=== PATIENT | male | born 1950 | race Caucasian/White ===

== ENCOUNTER → 2017-03-31 | Outpatient (CLI) | payer MEDICARE ==
[~2017-03-31] MED LIST: AMIO200T42 PO; APIX5TAB PO; CIPR500T3 PO; GABA300C10 PO; HYDR2TAB13 PO; IPRA4AER INH; LEVO50TA5 PO; METH500T97 PO; METO-93 PO; METO50TA82 PO; TIOT18CA INH
== END | disposition home or self-care (01) ==
LOC: CFH 08:43
PROVIDERS: ATTEND Internal Medicine Critical Care Medicine
DX: Z12.2 Encounter for screening for malignant neoplasm of respiratory organs (principal); F17.210 Nicotine dependence, cigarettes, uncomplicated; I25.10 Atherosclerotic heart disease of native coronary artery without angina pectoris; R91.8 Other nonspecific abnormal finding of lung field; J44.9 Chronic obstructive pulmonary disease, unspecified
CPT/HCPCS: G0297

== ENCOUNTER 2017-10-28 14:51 | Inpatient (IN) | payer MEDICARE ==
[~2017-10-28] VITALS: Ht 193 cm; Wt 85.7 kg
[~2017-10-28 14:51] MED LIST changes: -HYDR2TAB13 PO; +HYDR2TAB29 PO
[2017-10-28] MEDS ORDERED: ASPI81TA50 PO (15:32)
[2017-10-28 15:56] LABS: HEMOGLOBIN 12.9 g/dL (13.7-18.0); WHITE BLOOD COUNT 15.8 x10^3/uL (3.4-10)
[2017-10-28 16:08] LABS: ASPARTATE AMINO TRANSFERASE 49 U/L (15-37); BLOOD UREA NITROGEN 10 mg/dL (7-18)
[2017-10-28] MEDS ORDERED: CEFTRIAXONE PMX 1GM/50ML 50 ML IV ONE (18:00)
[2017-10-28] MEDS ORDERED: CEFTRIAXONE PMX 1GM/50ML 50 ML ONE (18:02)
[2017-10-28 19:00] VITALS: BP 111/76
[2017-10-28 19:14] VITALS: BP 106/70
[2017-10-28] MEDS ORDERED: ACETAMINOPHEN 325 MG TABLET PO PRN (19:30)
[2017-10-28] MEDS ORDERED: DOCUSATE 100 MG CAPSULE PO PRN (19:30)
[2017-10-28] MEDS ORDERED: TEMAZEPAM 15 MG CAPSULE PO PRN (19:30)
[2017-10-28] MEDS ORDERED: ENALAPRILAT 1.25 MG/ML, 2ML IVPush PRN (19:30)
[2017-10-28 20:30] VITALS: BP 106/70
[2017-10-28] MEDS: ENOXAPARIN 40 MG/0.4 ML SQ SCH (20:40)
[2017-10-28] MEDS: GABAPENTIN 300 MG CAPSULE PO SCH (20:40)
[2017-10-28] MEDS ORDERED: VANCOMYCIN PER PHARMACY MC PRN (22:00)
[2017-10-28] MEDS ORDERED: PHARMACOKINETIC MONITORING MC PRN (22:30)
[2017-10-29] MEDS: VANCOMYCIN 1,700 MG in SODIUM CHLORIDE 0.9% 250 ML IV SCH ×2 (00:24→17:18)
[2017-10-29 01:49] VITALS: BP 111/74
[2017-10-29 05:05] LABS: HEMOGLOBIN 11.9 g/dL (13.7-18.0); WHITE BLOOD COUNT 7.9 x10^3/uL (3.4-10)
[2017-10-29 05:10] LABS: BLOOD UREA NITROGEN 11 mg/dL (7-18)
[2017-10-29] MEDS: GABAPENTIN 300 MG CAPSULE PO SCH ×4 (06:25→22:14)
[2017-10-29] MEDS: CEFTRIAXONE PMX 1GM/50ML 50 ML IV SCH ×2 (06:26→19:46)
[2017-10-29] MEDS: LEVOTHYROXINE 125 MCG TABLET PO SCH (06:26)
[2017-10-29] MEDS: OMEPRAZOLE 20 MG CAPSULE.DR PO SCH (07:31)
[2017-10-29] MEDS: METOPROLOL SUCCINATE 50 MG TAB.ER.24H PO SCH (07:31)
[2017-10-29] MEDS: ASPIRIN 81 MG TABLET EC PO SCH (07:31)
[2017-10-29] MEDS: AMIODARONE 200 MG TABLET PO SCH (07:31)
[2017-10-29 07:34] VITALS: BP 100/66
[2017-10-29] MEDS ORDERED: ALBUTEROL/IPRATROPIUM 2.5MG/0.5MG, 3 ML HHN SCH (08:30)
[2017-10-29 14:00] VITALS: BP 110/75
[2017-10-29 19:37] VITALS: BP 105/61
[2017-10-29] MEDS: ENOXAPARIN 40 MG/0.4 ML SQ SCH (19:46)
[2017-10-30 01:22] VITALS: BP 102/67
[2017-10-30] MEDS: LEVOTHYROXINE 125 MCG TABLET PO SCH (05:36)
[2017-10-30] MEDS: GABAPENTIN 300 MG CAPSULE PO SCH (05:36)
[2017-10-30] MEDS: CEFTRIAXONE PMX 1GM/50ML 50 ML IV SCH (05:36)
[2017-10-30 06:36] LABS: HEMATOCRIT 36.6 % (39.2-51.8); WHITE BLOOD COUNT 6.8 x10^3/uL (3.4-10)
[2017-10-30 06:48] LABS: BLOOD UREA NITROGEN 13 mg/dL (7-18)
[2017-10-30] MEDS ORDERED: ALBUTEROL/IPRATROPIUM 2.5MG/0.5MG, 3 ML HHN PRN (08:30)
[2017-10-30] MEDS: METOPROLOL SUCCINATE 50 MG TAB.ER.24H PO SCH (08:53)
[2017-10-30] MEDS: OMEPRAZOLE 20 MG CAPSULE.DR PO SCH (08:57)
[2017-10-30] MEDS: ASPIRIN 81 MG TABLET EC PO SCH (08:58)
[2017-10-30] MEDS: AMIODARONE 200 MG TABLET PO SCH (08:58)
[2017-10-30 09:08] VITALS: BP 120/73
[2017-10-30] MEDS: VANCOMYCIN 1,700 MG in SODIUM CHLORIDE 0.9% 250 ML IV SCH (12:15)
[2017-10-30] MEDS ORDERED: DICL500C PO (14:30)
[2017-10-30 14:38] VITALS: BP 119/77
== END 2017-10-30 17:34 | disposition home health service (06) | DRG 871 ==
LOC: ED 17:02 → EDIP 17:48 → UNDOADMIN 18:02 → EDIP 18:02 → 3NW 18:31
PROVIDERS: ADMIT Hospitalist; ATTEND Hospitalist
DX: A41.9 Sepsis, unspecified organism (principal); E43 Unspecified severe protein-calorie malnutrition; J96.10 Chronic respiratory failure, unspecified whether with hypoxia or hypercapnia; D68.69 Other thrombophilia; J44.9 Chronic obstructive pulmonary disease, unspecified; I48.91 Unspecified atrial fibrillation; L03.115 Cellulitis of right lower limb; L03.116 Cellulitis of left lower limb; D53.9 Nutritional anemia, unspecified; F10.21 Alcohol dependence, in remission; G62.9 Polyneuropathy, unspecified; T45.1X5A Adverse effect of antineoplastic and immunosuppressive drugs, initial encounter; E03.9 Hypothyroidism, unspecified; Z92.21 Personal history of antineoplastic chemotherapy; Y92.89 Other specified places as the place of occurrence of the external cause; Z87.891 Personal history of nicotine dependence; Z68.23 Body mass index [BMI] 23.0-23.9, adult
CPT/HCPCS: 36415; 71010; 80048; 80053; 80307; 81003; 82140; 82607; 82746; 83605; 83690; 85025; 85610; 87040; 93005; 93970; 94667; 99285; J0696; J1650; J3370; G0479; J7050

== ENCOUNTER → 2017-12-24 | Outpatient (CLI) | payer MEDICARE ==
[~2017-12-24] MED LIST changes: +ASPI81TA50 PO; +DICL500C PO
== END ==
LOC: CFH 08:36
PROVIDERS: ATTEND Family Medicine
DX: M79.605 Pain in left leg (principal); M79.89 Other specified soft tissue disorders

== ENCOUNTER → 2018-03-03 | Outpatient (CLI) | payer MEDICARE | END | disposition home or self-care (01) | LOC: CVU 06:56 | PROVIDERS: ATTEND Internal Medicine Cardiovascular Disease | DX: I87.2 Venous insufficiency (chronic) (peripheral) (principal); R60.0 Localized edema | CPT/HCPCS: 93922; 93970 ==

== ENCOUNTER 2018-06-02 11:47 | Day surgery (SDC) | payer MEDICARE ==
[~2018-06-02] VITALS: Ht 193 cm; Wt 86.0 kg
[~2018-06-02 11:47] MED LIST changes: +ALBU18HF INH; +AMIO100T4 PO; +CEFD300C37 PO; +DOXY100T10 PO; +FLUT1POW2 NAS; +GUAI100L11 PO; +IPRA3AMP NPPB; +MELO15TA24 PO; +METO25TA35 PO; +OMEP-110 PO; +PRED5TAB PO; +TRAZ100T15 PO; +TRIA1CAP3 PO; +UMEC1DIS INH
[2018-06-02] MEDS ORDERED: LIDOCAINE-MPF 2% ,5ML ONE (12:52)
== END 2018-06-02 14:08 ==
LOC: CACL 11:47
PROVIDERS: ATTEND Internal Medicine Cardiovascular Disease
DX: I83.12 Varicose veins of left lower extremity with inflammation (principal); I10 Essential (primary) hypertension; J44.9 Chronic obstructive pulmonary disease, unspecified; I48.91 Unspecified atrial fibrillation; Z98.890 Other specified postprocedural states; Z72.89 Other problems related to lifestyle; Z79.82 Long term (current) use of aspirin
CPT/HCPCS: 36482; C1894; J3490

== ENCOUNTER → 2018-06-04 | Outpatient (CLI) | payer MEDICARE ==
[~2018-06-04] MED LIST changes: -IPRA3AMP NPPB; +IPRA3AMP30 NPPB; +TRAZ-137 PO; -TRAZ100T15 PO
== END | disposition home or self-care (01) ==
LOC: EDSTATUS 09:00 → CVU 09:07
PROVIDERS: ATTEND Internal Medicine Cardiovascular Disease
DX: I87.2 Venous insufficiency (chronic) (peripheral) (principal); Z79.82 Long term (current) use of aspirin; I11.9 Hypertensive heart disease without heart failure; F10.20 Alcohol dependence, uncomplicated
CPT/HCPCS: 93971

== ENCOUNTER → 2018-07-07 | Outpatient (CLI) | payer MEDICARE ==
[~2018-07-07] MED LIST changes: +ASCO-90 PO; +FERR-46 PO; +LEVO125T5 PO
[2018-07-07 12:32] LABS: ALANINE AMINOTRANSFERASE 18 U/L (12-78); ALBUMIN 3.8 g/dL (3.4-5.0); ANION GAP 7 mmol/L (5-15); CALCIUM 9.4 mg/dL (8.5-10.1); CHLORIDE 106 mmol/L (98-107); CREATININE 0.85 mg/dL (0.7-1.3)
[2018-07-07 12:34] LABS: ALKALINE PHOSPHATASE 99 U/L (45-117); BILIRUBIN,TOTAL 0.8 mg/dL (0.2-1.0); TOTAL PROTEIN 7.2 g/dL (6.4-8.2)
== END | disposition home or self-care (01) ==
LOC: STAR 10:43
PROVIDERS: ATTEND Internal Medicine
DX: Z01.818 Encounter for other preprocedural examination (principal); I45.10 Unspecified right bundle-branch block; R13.10 Dysphagia, unspecified; F17.200 Nicotine dependence, unspecified, uncomplicated
CPT/HCPCS: 36415; 80053; 93005

== ENCOUNTER 2018-07-14 09:54 | Day surgery (SDC) | payer MEDICARE ==
[2018-07-07 11:31] VITALS: BP 113/75
[~2018-07-14] VITALS: Ht 193 cm; Wt 82.4 kg
[2018-07-14] MEDS ORDERED: LACTATED RINGERS 1,000 ML IV SCH (10:24)
[2018-07-14] MEDS ORDERED: LIDOCAINE-MPF 1%, 2ML INFIL ONE (10:30)
[2018-07-14 10:32] VITALS: BP 113/75
[2018-07-14] MEDS ORDERED: ALBUTEROL/IPRATROPIUM 2.5MG/0.5MG, 3 ML NPPB PRN (12:30)
[2018-07-14] MEDS ORDERED: FENTANYL PF 100 MCG/2ML IV PRN (12:30)
[2018-07-14] MEDS ORDERED: ONDANSETRON 2MG/ML, 2ML IV PRN (12:30)
[2018-07-14] MEDS ORDERED: hydrALAzine 20 MG/ML, 1ML IV PRN (12:30)
[2018-07-14] MEDS ORDERED: PROPOFOL 10 MG/ML, 20ML ONE (12:30)
[2018-07-14] MEDS ORDERED: LABETALOL 5MG/ML, 20ML IV PRN (12:30)
[2018-07-14] MEDS ORDERED: OXYcodone 5 MG/5 ML ORAL.SOL UDC PO PRN (12:30)
[2018-07-14] MEDS ORDERED: ACETAMINOPHEN 325 MG TABLET PO PRN (12:30)
[2018-07-14] MEDS ORDERED: HYDROmorphone 1 MG/ML, 1ML IV PRN (12:30)
[2018-07-14] MEDS ORDERED: MIDAZOLAM 1 MG/ML, 2ML IV PRN (12:30)
== END 2018-07-14 15:00 | disposition home or self-care (01) ==
LOC: OUT 09:54
PROVIDERS: ATTEND Internal Medicine
DX: R13.10 Dysphagia, unspecified (principal); I48.91 Unspecified atrial fibrillation; I10 Essential (primary) hypertension; J44.9 Chronic obstructive pulmonary disease, unspecified; Z98.890 Other specified postprocedural states; Z96.642 Presence of left artificial hip joint; Z79.82 Long term (current) use of aspirin; Z79.899 Other long term (current) drug therapy
CPT/HCPCS: 43239; 43248; 88305; J2704; J7120

== ENCOUNTER → 2018-07-26 | Outpatient (CLI) | payer MEDICARE | END | disposition home or self-care (01) | LOC: CFH 14:24 | PROVIDERS: ATTEND Nurse Practitioner Family | DX: R91.1 Solitary pulmonary nodule (principal); J44.9 Chronic obstructive pulmonary disease, unspecified; Z87.891 Personal history of nicotine dependence | CPT/HCPCS: 71250 ==

== ENCOUNTER → 2018-10-13 | Outpatient (CLI) | payer MEDICARE | END | disposition home or self-care (01) | LOC: CFH 10:33 | PROVIDERS: ATTEND Nurse Practitioner Family | DX: R91.8 Other nonspecific abnormal finding of lung field (principal); M48.54XA Collapsed vertebra, not elsewhere classified, thoracic region, initial encounter for fracture | CPT/HCPCS: 71250 ==

== ENCOUNTER → 2019-01-31 | Outpatient (CLI) | payer MEDICARE ==
[~2019-01-31] MED LIST changes: +REGADENOSON 0.4 MG/5 ML SYRINGE ONE
== END | disposition home or self-care (01) ==
LOC: CFH 12:51
PROVIDERS: ATTEND Internal Medicine Cardiovascular Disease
DX: I45.19 Other right bundle-branch block (principal); I48.0 Paroxysmal atrial fibrillation
CPT/HCPCS: 78452; 93017; A9502; J2785

== ENCOUNTER → 2019-04-18 | Outpatient (CLI) | payer MEDICARE ==
[~2019-04-18] MED LIST changes: -REGADENOSON 0.4 MG/5 ML SYRINGE ONE
== END | disposition home or self-care (01) ==
LOC: CFH 09:32
PROVIDERS: ATTEND Nurse Practitioner Family
DX: R91.1 Solitary pulmonary nodule (principal)
CPT/HCPCS: 71250

== ENCOUNTER → 2019-05-05 | Outpatient (CLI) | payer MEDICARE | END | disposition home or self-care (01) | LOC: PETCFH 09:46 | PROVIDERS: ATTEND Nurse Practitioner Family | DX: R91.1 Solitary pulmonary nodule (principal); J84.10 Pulmonary fibrosis, unspecified; R59.0 Localized enlarged lymph nodes | CPT/HCPCS: 78815; A9552 ==

== ENCOUNTER 2019-05-27 12:41 | Outpatient (CLI) | payer MEDICARE | END 2019-05-27 23:59 | disposition home or self-care (01) | LOC: RAD 12:41 | PROVIDERS: ATTEND Otolaryngology | DX: R13.10 Dysphagia, unspecified (principal); Z85.89 Personal history of malignant neoplasm of other organs and systems; Z98.890 Other specified postprocedural states | CPT/HCPCS: 74220 ==

== ENCOUNTER 2019-06-17 10:20 | Day surgery (SDC) | payer MEDICARE ==
[~2019-06-17] VITALS: Ht 190.5 cm; Wt 80.7 kg
[2019-06-17 11:00] VITALS: BP 120/83
== END 2019-06-17 15:05 | disposition home or self-care (01) ==
LOC: OUT 10:20
PROVIDERS: ATTEND Internal Medicine Critical Care Medicine
DX: R59.1 Generalized enlarged lymph nodes (principal); I48.91 Unspecified atrial fibrillation; J44.9 Chronic obstructive pulmonary disease, unspecified; J30.9 Allergic rhinitis, unspecified; I10 Essential (primary) hypertension; Z79.82 Long term (current) use of aspirin; Z79.899 Other long term (current) drug therapy; Z87.891 Personal history of nicotine dependence; Z92.21 Personal history of antineoplastic chemotherapy; Z92.3 Personal history of irradiation; Z99.81 Dependence on supplemental oxygen; Z80.1 Family history of malignant neoplasm of trachea, bronchus and lung; Z82.5 Family history of asthma and other chronic lower respiratory diseases
CPT/HCPCS: 31652; 36415; 80053; 88172; 88173; 88177; 88305; 93005; J0330; J0690; J1100; J2405; J2704; J2710; J3010; 31629

== ENCOUNTER 2019-10-02 09:09 | Emergency (ER) | payer MEDICARE ==
[~2019-10-02] VITALS: Ht 190.5 cm; Wt 81.8 kg
[~2019-10-02 09:09] MED LIST changes: -DOXY100T10 PO; +DOXY100T23 PO; +FLUT15.845 NAS
--- NOTE | 2019-10-02 09:20 | NUR ---
PT HERE WITH C/O URINARY RETENTION, ABDOMINAL PRESSURE, AND INABILITY TO VOID SINCE 09/30 AT 1200. PT STATES HAS OCCASSIONALLY HAD URINARY PROBLEMS IN THE PAST AND HAS A UROLOGIST. PT DRESSED IN GOWN, ABDOMEN FIRM AND DISTENDED BUT DENIES PAIN, STATES JUST PRESSURE. PT AAO X 4, NAD, 3L NC O2 FOR COPD (HOME O2), CALL LIGHT WITHIN REACH, PT PLACED ON MONITOR. MD AT BEDSIDE FOR ASSESSMENT.
--- NOTE | 2019-10-02 09:35 | NUR ---
17F LEON CATHETER PLACED USING STERILE TECHNIQUE WITH SECOND RN AT BEDSIDE. PT TOLERATED WELL. UA SENT, LEON DRAINING TO GRAVITY, CLEAR/YELLOW URINE.
[2019-10-02 09:49] LABS: BASOPHILS # (AUTO) 0.06 x10^3/uL (0-0.1); BASOPHILS % (AUTO) 1 % (0-1); EOSINOPHILS # (AUTO) 0.07 x10^3/uL (0-0.4); EOSINOPHILS % (AUTO) 1 % (1-7); LYMPHOCYTES # (AUTO) 0.43 x10^3/uL (1-3.4); LYMPHOCYTES % (AUTO) 4 % (22-44); MD NO; MEAN CORPUSCULAR HEMOGLOBIN 36.1 pg (27.5-34.5); MEAN CORPUSCULAR HGB CONC 33.3 g/dL (33.2-36.2); MEAN CORPUSCULAR VOLUME 108.3 fL (81-97); MEAN PLATELET VOLUME 8.6 fL (7.4-10.4); MONOCYTES # (AUTO) 1.23 x10^3/uL (0.2-0.8); MONOCYTES % (AUTO) 11 % (2-9); NEUTROPHILS # (AUTO) 9.54 x10^3/uL (1.8-6.8); NEUTROPHILS % (AUTO) 84 % (42-75); PLATELET COUNT 213 x10^3/uL (130-400); RED BLOOD COUNT 4.71 x10^6/uL (4.38-5.82); RED CELL DISTRIBUTION WIDTH 14.5 % (9.4-14.8)
[2019-10-02 09:57] LABS: ALBUMIN 3.7 g/dL (3.4-5.0); ANION GAP 6 mmol/L (5-15); CALCIUM 8.9 mg/dL (8.5-10.1); CHLORIDE 100 mmol/L (98-107); CREATININE 1.06 mg/dL (0.7-1.3)
[2019-10-02 09:58] VITALS: BP 119/81
[2019-10-02 10:03] LABS: MICROSCOPIC NOT IND
[2019-10-02 10:04] LABS: CULTURE INDICATED? NO
--- NOTE | 2019-10-02 10:07 | NUR ---
ALL RESULTS BACK AT THIS TIME, CHART UP FOR RECHECK.
--- NOTE | 2019-10-02 10:12 | NUR ---
1250 URINE EMPTIED FROM LEON.
--- NOTE | 2019-10-02 10:52 | NUR ---
LEG BAG TEACHING COMPLETED.
--- NOTE | 2019-10-02 10:54 | NUR ---
Patient/Caregiver given discharge instructions and they have confirmed that they understand the instructions. Patient ambulatory with steady gait.
== END 2019-10-02 11:02 | disposition home or self-care (01) ==
LOC: ED 09:53
DX: N40.1 Benign prostatic hyperplasia with lower urinary tract symptoms (principal); R33.8 Other retention of urine; I48.91 Unspecified atrial fibrillation; I48.92 Unspecified atrial flutter; J44.9 Chronic obstructive pulmonary disease, unspecified; F17.210 Nicotine dependence, cigarettes, uncomplicated; Z85.818 Personal history of malignant neoplasm of other sites of lip, oral cavity, and pharynx; Z96.642 Presence of left artificial hip joint
CPT/HCPCS: 36415; 51702; 80048; 81003; 82040; 85025; 99284

== ENCOUNTER 2019-11-23 09:37 | Outpatient (CLI) | payer MEDICARE ==
[2019-11-23] MEDS ORDERED: TAMS-11 PO (10:27)
[2019-11-23] MEDS ORDERED: AZEL137S4 NAS (10:27)
[2019-11-23] MEDS ORDERED: FINA5TAB4 PO (10:27)
[2019-11-23] MEDS ORDERED: MONT10TA9 PO (10:27)
[2019-11-23] MEDS ORDERED: ALBU18HF INH (10:31)
[2019-11-23 10:53] LABS: BASOPHILS # (AUTO) 0.06 x10^3/uL (0-0.1); BASOPHILS % (AUTO) 1 % (0-1); EOSINOPHILS # (AUTO) 0.21 x10^3/uL (0-0.4); EOSINOPHILS % (AUTO) 2 % (1-7); LYMPHOCYTES # (AUTO) 0.78 x10^3/uL (1-3.4); LYMPHOCYTES % (AUTO) 6 % (22-44); MD NO; MEAN CORPUSCULAR HGB CONC 33.7 g/dL (33.2-36.2); MEAN CORPUSCULAR VOLUME 109.7 fL (81-97); MEAN PLATELET VOLUME 8.8 fL (7.4-10.4); MONOCYTES # (AUTO) 1.23 x10^3/uL (0.2-0.8); MONOCYTES % (AUTO) 10 % (2-9); NEUTROPHILS # (AUTO) 10.33 x10^3/uL (1.8-6.8); NEUTROPHILS % (AUTO) 82 % (42-75); PLATELET COUNT 204 x10^3/uL (130-400); RED BLOOD COUNT 4.45 x10^6/uL (4.38-5.82); RED CELL DISTRIBUTION WIDTH 15.9 % (9.4-14.8)
[2019-11-23 11:05] LABS: ALBUMIN 3.7 g/dL (3.4-5.0); ANION GAP 8 mmol/L (5-15); CALCIUM 8.7 mg/dL (8.5-10.1); CHLORIDE 104 mmol/L (98-107)
[2019-11-23 11:10] LABS: ALANINE AMINOTRANSFERASE 46 U/L (12-78); ALKALINE PHOSPHATASE 63 U/L (45-117); BILIRUBIN,TOTAL 0.8 mg/dL (0.2-1.0); CREATININE 0.99 mg/dL (0.7-1.3); TOTAL PROTEIN 7.1 g/dL (6.4-8.2)
[2019-11-23 11:11] LABS: INTERNATIONAL NORMALIZED RATIO 0.94 (0.93-1.1)
== END 2019-11-23 23:59 | disposition home or self-care (01) ==
LOC: STAR 09:37
PROVIDERS: ATTEND Urology
DX: Z01.818 Encounter for other preprocedural examination (principal); I45.10 Unspecified right bundle-branch block; R33.9 Retention of urine, unspecified
CPT/HCPCS: 36415; 80053; 84134; 85025; 85610; 85730; 93005

== ENCOUNTER 2019-11-23 10:50 | Emergency (ER) | payer MEDICARE ==
[~2019-11-23] VITALS: Ht 190.5 cm; Wt 84.0 kg
[~2019-11-23 10:50] MED LIST changes: +AZEL137S4 NAS; +FINA5TAB4 PO; +MONT10TA9 PO; +TAMS-11 PO
--- NOTE | 2019-11-23 11:12 | NUR ---
pt presents to ED from [facility] for SVT found on pre-op EKG. EKG completed on arrival, NSR. Pt attached to all monitors. pt a&o, resps even and unlabored, denies any symptoms at this time. report given to MARGRET Godinez.
--- NOTE | 2019-11-23 11:23 | NUR ---
BREAK RN: PT UPRIGHT ON GURNEY AWAKE & COMFORTABLE, RESPONDS APPROP TO STAFF, NAD, COMFORT MEASURES PROVIDED, AT BS, CALL LIGHT WITHIN REACH.
[2019-11-23] MEDS ORDERED: SODIUM CHLORIDE FLUSH 10ML SYR IVF ONE (12:00)
[2019-11-23 12:24] LABS: ALANINE AMINOTRANSFERASE 41 U/L (12-78); ALBUMIN 3.4 g/dL (3.4-5.0); ANION GAP 7 mmol/L (5-15); CALCIUM 8.8 mg/dL (8.5-10.1); CHLORIDE 104 mmol/L (98-107)
[2019-11-23 12:25] LABS: BASOPHILS # (AUTO) 0.07 x10^3/uL (0-0.1); BASOPHILS % (AUTO) 1 % (0-1); EOSINOPHILS # (AUTO) 0.23 x10^3/uL (0-0.4); EOSINOPHILS % (AUTO) 2 % (1-7); LYMPHOCYTES # (AUTO) 0.84 x10^3/uL (1-3.4); LYMPHOCYTES % (AUTO) 7 % (22-44); MD NO; MEAN CORPUSCULAR HEMOGLOBIN 36.3 pg (27.5-34.5); MEAN CORPUSCULAR HGB CONC 33.2 g/dL (33.2-36.2); MEAN CORPUSCULAR VOLUME 109.4 fL (81-97); MEAN PLATELET VOLUME 9.6 fL (7.4-10.4); MONOCYTES # (AUTO) 1.26 x10^3/uL (0.2-0.8); MONOCYTES % (AUTO) 10 % (2-9); NEUTROPHILS # (AUTO) 10.03 x10^3/uL (1.8-6.8); NEUTROPHILS % (AUTO) 81 % (42-75); PLATELET COUNT 194 x10^3/uL (130-400); RED BLOOD COUNT 4.32 x10^6/uL (4.38-5.82); RED CELL DISTRIBUTION WIDTH 15.4 % (9.4-14.8)
[2019-11-23 12:34] LABS: ALKALINE PHOSPHATASE 58 U/L (45-117); BILIRUBIN,TOTAL 0.8 mg/dL (0.2-1.0); CREATININE 0.99 mg/dL (0.7-1.3); TOTAL PROTEIN 6.7 g/dL (6.4-8.2)
--- NOTE | 2019-11-23 12:53 | NUR ---
EDMD Sahm at bedside to update pt with results and POC. pt a&o, resps even and unlabored, denies pain. pt remains in NSR on patient monitor, no ectopy noted. EDMD notified pt's wbc is elevated at 12.7, pt states this is his baseline (unknown why). MD declines to order UA. MD plans to discharge, awaiting orders and paperwork at this time.
--- NOTE | 2019-11-23 13:27 | NUR ---
[id number] dr gomez spoke with dr pimentel
[2019-11-23 14:08] VITALS: BP 133/70
--- NOTE | 2019-11-23 14:09 | NUR ---
PT HAS NO COMPLAINT OF PAIN. PT HAS HAD NO RECURRENCE OF SVT DURING THIS VISIT. PT HAD ONE MINUTE EPISODE OF BIGEMINY AT 1311 WITH NO RECURRENCE. [facility] MD MARIE'Debbie RN TO DISCHARGE WITH F/U INSTRUCTIONS TO SEE ELECTRICIAN SUPERVISOR. PT STATES HE HAS CONTACTED HIS ELECTRICIAN SUPERVISOR AND HAS A F/U APPT TOMORROW. PT DENIES PAIN. PT A&O, RESPS EVEN AND UNLABORED, PT IS NSR ON EXECUTIVE SOUS CHEF WITH NO ECTOPY AT THIS TIME. PIV DC'D WITH TIP INTACT. PT GIVEN DC INSTRUCTIONS. PT AMB TO DC DESK WITH STEADY GAIT, USING OWN WALKER.
== END 2019-11-23 14:10 | disposition home or self-care (01) ==
LOC: ED 13:16
DX: I48.92 Unspecified atrial flutter (principal); J44.9 Chronic obstructive pulmonary disease, unspecified; I48.91 Unspecified atrial fibrillation
CPT/HCPCS: 36415; 71045; 80053; 84443; 85025; 93005; 99284

== ENCOUNTER 2019-11-30 05:46 | Day surgery (SDC) | payer MEDICARE ==
[~2019-11-30] VITALS: Ht 190.5 cm; Wt 82.0 kg
[2019-11-30] MEDS ORDERED: LACTATED RINGERS 1,000 ML IV SCH (06:33)
[2019-11-30] MEDS ORDERED: LIDOCAINE-MPF 1%, 2ML INFIL ONE (07:00)
[2019-11-30] MEDS ORDERED: FENTANYL PF 250 MCG/5ML ONE (07:23)
[2019-11-30] MEDS ORDERED: HYDROmorphone 1 MG/ML, 1ML INJ IVPush PRN (07:30)
[2019-11-30] MEDS ORDERED: LABETALOL 5MG/ML, 20ML IV PRN (07:30)
[2019-11-30] MEDS ORDERED: PROMETHAZINE 25 MG/ML, 1ML IV PRN (07:30)
[2019-11-30] MEDS ORDERED: FENTANYL PF 100 MCG/2ML IV PRN (07:30)
[2019-11-30] MEDS ORDERED: hydrALAzine 20 MG/ML, 1ML IV PRN (07:30)
[2019-11-30] MEDS ORDERED: ACETAMINOPHEN 500 MG TABLET PO ONE (07:30)
[2019-11-30] MEDS ORDERED: GABAPENTIN 300 MG CAPSULE PO ONE (07:30)
[2019-11-30] MEDS ORDERED: MEPERIDINE/PF 25MG/ML,1ML IVPush PRN (07:30)
[2019-11-30] MEDS ORDERED: HALOPERIDOL 5 MG/ML IV PRN (07:30)
[2019-11-30] MEDS ORDERED: ALBUTEROL/IPRATROPIUM 2.5MG/0.5MG, 3 ML NPPB PRN (07:30)
[2019-11-30] MEDS ORDERED: OXYcodone 5 MG/5 ML ORAL.SOL UDC PO PRN (07:30)
[2019-11-30] MEDS ORDERED: GENTAMICIN 80 MG/2 ML ONE ×2 (07:41)
[2019-11-30] MEDS ORDERED: ONDANSETRON 2MG/ML, 2ML ONE (08:12)
[2019-11-30] MEDS ORDERED: DEXAMETHASONE 4 MG/ML, 1ML ONE (08:12)
[2019-11-30] MEDS ORDERED: NEOSTIGMINE 1 MG/ML, 10ML ONE (08:12)
[2019-11-30] MEDS ORDERED: SUCCINYLCHOLINE 20 MG/ML, 10ML ONE (08:12)
[2019-11-30] MEDS ORDERED: CEFAZOLIN 1,000 MG ONE (08:12)
[2019-11-30] MEDS ORDERED: PROPOFOL 10 MG/ML, 20ML ONE (08:12)
[2019-11-30] MEDS ORDERED: GLYCOPYRROLATE 0.2MG/1ML, 5ML ONE (08:12)
[2019-11-30] MEDS ORDERED: ROCURONIUM 10MG/ML,5ML ONE (08:12)
[2019-11-30] MEDS ORDERED: ONDANSETRON 2MG/ML, 2ML IV PRN (11:30)
[2019-11-30] MEDS ORDERED: ACETAMINOPHEN 325 MG TABLET PO PRN (11:30)
[2019-11-30] MEDS ORDERED: GENTAMICIN 80 MG in SODIUM CHLORIDE 0.9% 48 ML IV SCH (11:30)
[2019-11-30] MEDS ORDERED: OPIUM/BELLADONNA SUPP.RECT 16.2-30 MG PR PRN (11:30)
[2019-11-30] MEDS: SODIUM CHLORIDE 0.9% 1,000 ML IV SCH (11:42)
[2019-11-30 14:00] VITALS: BP 103/70
[2019-11-30] MEDS: GENTAMICIN 80 MG in SODIUM CHLORIDE 0.9% 48 ML IV SCH (15:41)
[2019-11-30] MEDS: CEFAZOLIN PMX 1GM/50ML 50 ML IV SCH ×2 (16:20→23:58)
[2019-11-30] MEDS: HYDROcodone/APAP 5/325 TABLET PO PRN ×2 (16:25→21:03)
[2019-11-30 20:18] VITALS: BP 103/79
[2019-12-01 00:01] VITALS: BP 101/68
[2019-12-01] MEDS: GENTAMICIN 80 MG in SODIUM CHLORIDE 0.9% 48 ML IV SCH (00:30)
[2019-12-01 00:32] VITALS: BP 102/63
[2019-12-01 04:09] VITALS: BP 108/68
[2019-12-01 04:58] LABS: ANION GAP 4 mmol/L (5-15); CALCIUM 8.2 mg/dL (8.5-10.1); CHLORIDE 107 mmol/L (98-107); CREATININE 0.88 mg/dL (0.7-1.3)
[2019-12-01 07:31] VITALS: BP 114/73
[2019-12-01] MEDS: SODIUM CHLORIDE 0.9% 1,000 ML IV SCH (07:45)
[2019-12-01] MEDS: HYDROcodone/APAP 5/325 TABLET PO PRN (10:16)
[2019-12-01 14:58] VITALS: BP 100/68
== END 2019-12-01 15:35 | disposition home or self-care (01) ==
LOC: OUT 05:46 → 3WST 09:30 → 4NE 12-01 00:17 → OUT 12-01 15:35
PROVIDERS: ATTEND Urology
DX: N40.1 Benign prostatic hyperplasia with lower urinary tract symptoms (principal); C61 Malignant neoplasm of prostate; R33.8 Other retention of urine; I48.91 Unspecified atrial fibrillation; J44.9 Chronic obstructive pulmonary disease, unspecified; E03.9 Hypothyroidism, unspecified; I10 Essential (primary) hypertension
CPT/HCPCS: 36415; 52601; 80048; 85014; 85018; 88305; 88342; J0330; J0690; J1100; J1580; J2405; J2704; J2710; J3010; J7030; J7120; G0378

== ENCOUNTER → 2020-03-23 | Outpatient (CLI) | payer MEDICARE ==
[~2020-03-23] MED LIST changes: +MONT10TA11 PO; -MONT10TA9 PO; -TRAZ-137 PO; +TRAZ-175 PO
== END | disposition home or self-care (01) ==
LOC: STAR 15:31
PROVIDERS: ATTEND Internal Medicine
DX: Z01.818 Encounter for other preprocedural examination (principal); I44.4 Left anterior fascicular block; I45.10 Unspecified right bundle-branch block; R13.10 Dysphagia, unspecified
CPT/HCPCS: 93005

== ENCOUNTER 2020-03-28 06:34 | Day surgery (SDC) | payer MEDICARE ==
[~2020-03-28] VITALS: Ht 190.5 cm; Wt 77.0 kg
[2020-03-28 07:06] VITALS: BP 113/75
[2020-03-28] MEDS ORDERED: LACTATED RINGERS 1,000 ML IV SCH (07:07)
[2020-03-28] MEDS ORDERED: CHLORHEXIDINE 15 ML UDC ONE (07:09)
[2020-03-28] MEDS ORDERED: IPRA15SP NAS (07:24)
[2020-03-28] MEDS ORDERED: CHLORHEXIDINE 15 ML UDC MM ONE (07:30)
[2020-03-28] MEDS ORDERED: FENTANYL PF 100 MCG/2ML IV PRN (07:30)
[2020-03-28] MEDS ORDERED: ONDANSETRON 2MG/ML, 2ML IVPush PRN (07:30)
[2020-03-28] MEDS ORDERED: LIDOCAINE-MPF 2% ,5ML ONE (08:14)
[2020-03-28] MEDS ORDERED: SUCCINYLCHOLINE 20 MG/ML, 10ML ONE (08:14)
[2020-03-28] MEDS ORDERED: MIDAZOLAM 1 MG/ML, 2ML ONE (08:14)
[2020-03-28] MEDS ORDERED: PROPOFOL 10 MG/ML, 20ML ONE (08:14)
[2020-03-28] MEDS ORDERED: ALBUTEROL/IPRATROPIUM 2.5MG/0.5MG, 3 ML ONE (09:45)
[2020-03-28] MEDS ORDERED: ALBUTEROL/IPRATROPIUM 2.5MG/0.5MG, 3 ML NPPB PRN (10:00)
== END 2020-03-28 11:30 | disposition home or self-care (01) ==
LOC: OUT 06:34
PROVIDERS: ATTEND Internal Medicine
DX: R13.10 Dysphagia, unspecified (principal); K22.2 Esophageal obstruction; J44.9 Chronic obstructive pulmonary disease, unspecified; E11.9 Type 2 diabetes mellitus without complications; I10 Essential (primary) hypertension; Z79.82 Long term (current) use of aspirin; Z79.1 Long term (current) use of non-steroidal anti-inflammatories (NSAID); Z79.890 Hormone replacement therapy; Z79.899 Other long term (current) drug therapy; Z85.89 Personal history of malignant neoplasm of other organs and systems; Z92.21 Personal history of antineoplastic chemotherapy; Z92.3 Personal history of irradiation; Z96.642 Presence of left artificial hip joint; Z99.81 Dependence on supplemental oxygen; Z98.890 Other specified postprocedural states
CPT/HCPCS: 43239; 43248; 88305; 94640; J0330; J2250; J2704; J7120; U0001

== ENCOUNTER → 2020-04-27 | Outpatient (CLI) | payer MEDICARE ==
[~2020-04-27] MED LIST changes: +IPRA15SP NAS
== END | disposition home or self-care (01) ==
LOC: CVU 08:55
PROVIDERS: ATTEND Internal Medicine Cardiovascular Disease
DX: I70.202 Unspecified atherosclerosis of native arteries of extremities, left leg (principal); I48.91 Unspecified atrial fibrillation; I87.2 Venous insufficiency (chronic) (peripheral)
CPT/HCPCS: 93922; 93926

== ENCOUNTER → 2020-05-04 | Outpatient (CLI) | payer MEDICARE | END | disposition home or self-care (01) | LOC: CFH 12:39 | PROVIDERS: ATTEND Nurse Practitioner Family | DX: J98.19 Other pulmonary collapse (principal); J98.09 Other diseases of bronchus, not elsewhere classified; I25.10 Atherosclerotic heart disease of native coronary artery without angina pectoris; M48.54XA Collapsed vertebra, not elsewhere classified, thoracic region, initial encounter for fracture; R91.1 Solitary pulmonary nodule | CPT/HCPCS: 71250 ==

== ENCOUNTER 2020-05-10 09:07 | Day surgery (SDC) | payer MEDICARE ==
[2020-05-09 09:33] LABS: BASOPHILS # (AUTO) 0.03 x10^3/uL (0-0.1); BASOPHILS % (AUTO) 0 % (0-1); EOSINOPHILS # (AUTO) 0.13 x10^3/uL (0-0.4); EOSINOPHILS % (AUTO) 1 % (1-7); LYMPHOCYTES # (AUTO) 0.37 x10^3/uL (1-3.4); LYMPHOCYTES % (AUTO) 4 % (22-44); MD NO; MEAN CORPUSCULAR HEMOGLOBIN 36.1 pg (27.5-34.5); MEAN CORPUSCULAR HGB CONC 33.6 g/dL (33.2-36.2); MEAN CORPUSCULAR VOLUME 107.3 fL (81-97); MEAN PLATELET VOLUME 8.3 fL (7.4-10.4); MONOCYTES % (AUTO) 13 % (2-9); NEUTROPHILS # (AUTO) 8.52 x10^3/uL (1.8-6.8); NEUTROPHILS % (AUTO) 82 % (42-75); PLATELET COUNT 312 x10^3/uL (130-400); RED BLOOD COUNT 4.36 x10^6/uL (4.38-5.82); RED CELL DISTRIBUTION WIDTH 14.1 % (9.4-14.8)
[2020-05-09 09:44] LABS: INTERNATIONAL NORMALIZED RATIO 0.94 (0.93-1.1)
[~2020-05-10] VITALS: Ht 190.5 cm; Wt 74.6 kg
[~2020-05-10 09:07] MED LIST changes: +LIDOCAINE 2%, 20ML ONE; +LIDOCAINE 4% TOPICAL SOLUTION 50 ML ONE; +LIDOCAINE GEL 2%, 5ML ONE
[2020-05-10 09:30] VITALS: BP 120/80
[2020-05-10] MEDS ORDERED: SODIUM CHLORIDE 0.9% 1,000 ML IV SCH (09:30)
[2020-05-10] MEDS ORDERED: CHLORHEXIDINE 15 ML UDC MM ONE (09:30)
[2020-05-10] MEDS ORDERED: MIDAZOLAM 1 MG/ML, 5ML ONE (10:41)
[2020-05-10] MEDS ORDERED: FENTANYL PF 100 MCG/2ML ONE (10:41)
== END 2020-05-10 12:35 | disposition home or self-care (01) ==
LOC: OUT 09:07
PROVIDERS: ATTEND Internal Medicine
DX: R91.8 Other nonspecific abnormal finding of lung field (principal); Z11.59 Encounter for screening for other viral diseases; J44.9 Chronic obstructive pulmonary disease, unspecified; J96.10 Chronic respiratory failure, unspecified whether with hypoxia or hypercapnia; J30.9 Allergic rhinitis, unspecified; R59.1 Generalized enlarged lymph nodes; Z79.01 Long term (current) use of anticoagulants; Z79.82 Long term (current) use of aspirin; Z79.890 Hormone replacement therapy; Z79.1 Long term (current) use of non-steroidal anti-inflammatories (NSAID); Z79.899 Other long term (current) drug therapy; Z87.891 Personal history of nicotine dependence; Z99.81 Dependence on supplemental oxygen; Z80.1 Family history of malignant neoplasm of trachea, bronchus and lung; Z82.5 Family history of asthma and other chronic lower respiratory diseases
CPT/HCPCS: 31622; 36415; 85025; 85610; 85730; 87070; 87205; 87635; 99152; 99153; J2250; J3010; J7030

== ENCOUNTER 2020-06-11 13:56 | Day surgery (SDC) | payer MEDICARE ==
[~2020-06-11] VITALS: Ht 190.5 cm; Wt 74.3 kg
[~2020-06-11 13:56] MED LIST changes: -LIDOCAINE 2%, 20ML ONE; -LIDOCAINE 4% TOPICAL SOLUTION 50 ML ONE; -LIDOCAINE GEL 2%, 5ML ONE
[2020-06-11 14:24] VITALS: BP 108/55
[2020-06-11] MEDS ORDERED: CLIN300C8 PO (14:29)
[2020-06-11] MEDS ORDERED: METO50TA82 PO (14:29)
[2020-06-11] MEDS ORDERED: SODIUM CHLORIDE 0.9% 1,000 ML IV SCH (14:31)
[2020-06-11] MEDS ORDERED: FLUMAZENIL 0.1 MG/1 ML, 5ML ONE (15:17)
[2020-06-11] MEDS ORDERED: PROTAMINE SULFATE 10 MG/ML, 25ML ONE (15:17)
[2020-06-11] MEDS ORDERED: HEPARIN 1,000 UNITS/ML, 10ML ONE (15:17)
[2020-06-11] MEDS ORDERED: MIDAZOLAM 1 MG/ML, 5ML ONE (15:17)
[2020-06-11] MEDS ORDERED: FENTANYL PF 100 MCG/2ML ONE (15:17)
[2020-06-11] MEDS ORDERED: NALOXONE 1 MG/ML, 2ML ONE (15:17)
[2020-06-11 15:21] LABS: ALANINE AMINOTRANSFERASE 12 U/L (12-78); CALCIUM 8.8 mg/dL (8.5-10.1); CHLORIDE 97 mmol/L (98-107); CREATININE 0.79 mg/dL (0.7-1.3)
[2020-06-11] MEDS ORDERED: LIDOCAINE 1%, 10ML ONE (15:26)
[2020-06-11 16:07] LABS: ALKALINE PHOSPHATASE 97 U/L (45-117); BILIRUBIN,TOTAL 0.5 mg/dL (0.2-1.0); TOTAL PROTEIN 7.1 g/dL (6.4-8.2)
[2020-06-11 16:23] LABS: ANION GAP 9 mmol/L (5-15)
== END 2020-06-11 17:50 | disposition home or self-care (01) ==
LOC: OUT 13:56
PROVIDERS: ATTEND Surgery
DX: L97.428 Non-pressure chronic ulcer of left heel and midfoot with other specified severity (principal); Z11.59 Encounter for screening for other viral diseases; I70.213 Atherosclerosis of native arteries of extremities with intermittent claudication, bilateral legs; I48.91 Unspecified atrial fibrillation; I10 Essential (primary) hypertension; J44.9 Chronic obstructive pulmonary disease, unspecified; Z85.89 Personal history of malignant neoplasm of other organs and systems; Z98.890 Other specified postprocedural states; Z96.642 Presence of left artificial hip joint; Z82.49 Family history of ischemic heart disease and other diseases of the circulatory system; Z72.89 Other problems related to lifestyle; F17.210 Nicotine dependence, cigarettes, uncomplicated; F12.90 Cannabis use, unspecified, uncomplicated; Z83.3 Family history of diabetes mellitus
CPT/HCPCS: 36200; 36415; 75630; 80053; 87635; 99156; 99157; C1751; C1760; C1769; C1894; J2250; J3010; J1644; J2720; J2310

== ENCOUNTER 2020-07-17 20:21 | Inpatient (IN) | payer MEDICARE ==
[~2020-07-17] VITALS: Ht 190.5 cm; Wt 81.3 kg
[~2020-07-17 20:21] MED LIST changes: +CLIN300C8 PO
--- NOTE | 2020-07-17 20:58 | NUR ---
C/O FACIAL AND THROAT SWELLING 3-4 WEEKS, WORSE TODAY. PLACED ON CARDIAC AND VITALS MONITORS, CALL LIGHT WITHIN REACH.
[2020-07-17] MEDS ORDERED: DEXAMETHASONE 4 MG/ML, 1ML ONE (22:22)
[2020-07-17 22:28] LABS: BASOPHILS # (AUTO) 0.01 x10^3/uL (0-0.1); BASOPHILS % (AUTO) 0 % (0-1); EOSINOPHILS # (AUTO) 0.14 x10^3/uL (0-0.4); EOSINOPHILS % (AUTO) 2 % (1-7); LYMPHOCYTES # (AUTO) 0.43 x10^3/uL (1-3.4); LYMPHOCYTES % (AUTO) 6 % (22-44); MD NO; MEAN CORPUSCULAR HEMOGLOBIN 34.1 pg (27.5-34.5); MEAN CORPUSCULAR HGB CONC 32.2 g/dL (33.2-36.2); MEAN CORPUSCULAR VOLUME 105.9 fL (81-97); MEAN PLATELET VOLUME 8.6 fL (7.4-10.4); MONOCYTES # (AUTO) 0.96 x10^3/uL (0.2-0.8); MONOCYTES % (AUTO) 13 % (2-9); NEUTROPHILS # (AUTO) 5.95 x10^3/uL (1.8-6.8); NEUTROPHILS % (AUTO) 80 % (42-75); PLATELET COUNT 194 x10^3/uL (130-400); RED BLOOD COUNT 4.03 x10^6/uL (4.38-5.82); RED CELL DISTRIBUTION WIDTH 17.8 % (9.4-14.8)
[2020-07-17] MEDS ORDERED: DEXAMETHASONE 4 MG/ML, 1ML IVPush ONE ×2 (22:30)
[2020-07-17 22:34] LABS: ALBUMIN 3.2 g/dL (3.4-5.0); ANION GAP 8 mmol/L (5-15); CHLORIDE 94 mmol/L (98-107); CREATININE 0.75 mg/dL (0.7-1.3)
--- NOTE | 2020-07-17 22:58 | NUR ---
Pt medicated per emar and given steroids.
--- NOTE | 2020-07-17 23:06 | NUR ---
REPORT GIVEN TO PATRICIA OSWALD.
[2020-07-17] MEDS ORDERED: OMNIPAQUE 350 MG/ML, 100ML BOTTLE ONE (23:16)
[2020-07-17] MEDS ORDERED: MORPHINE SULFATE 4 MG/ML, 1ML ONE (23:28)
[2020-07-17] MEDS ORDERED: ONDANSETRON 2MG/ML, 2ML ONE (23:28)
[2020-07-17] MEDS ORDERED: ONDANSETRON 2MG/ML, 2ML IVPush ONE (23:30)
[2020-07-17] MEDS ORDERED: MORPHINE SULFATE 4 MG/ML, 1ML IVPush PRN (23:30)
--- NOTE | 2020-07-17 23:33 | NUR ---
Pt medicated for pain
--- NOTE | 2020-07-18 00:08 | NUR ---
RECEIVED BS REPORT FROM MARGRET GOMEZ TO ASSUME CARE OF PT. PT. DENIES NEEDS AT THIS TIME. AT BS FOR SUPPORT. ALL SAFETY MEASURES OBSERVED. SPO2, B/P, AND HEART MONITORS ALL IN PLACE.
--- NOTE | 2020-07-18 00:08 | NUR ---
Bedside report to Diane OSWALD
--- NOTE | 2020-07-18 00:10 | NUR ---
LATE ENTRY: PT. IS ABLE TO SPEAK, MAINTAINS OWN AIRWAY AND SECRETIONS. PER MARGRET GOMEZ SWELLING IN FACE APPEARS SLIGHTLY IMPROVED SINCE ARRIVAL IN ED.
--- NOTE | 2020-07-18 01:00 | NUR ---
RESULTS BACK AT THIS TIME; TO RECHECK PT. FOR DISPO.
[2020-07-18] MEDS ORDERED: hydrALAzine 20 MG/ML, 1ML IVPush PRN (01:30)
[2020-07-18] MEDS ORDERED: TRAZODONE 50MG TABLET PO PRN (01:30)
[2020-07-18] MEDS ORDERED: ACETAMINOPHEN 325 MG TABLET PO PRN (01:30)
[2020-07-18] MEDS ORDERED: DOCUSATE 100 MG CAPSULE PO PRN (01:30)
[2020-07-18] MEDS ORDERED: ALBUTEROL HFA 90 MCG/SPRAY INH PRN (01:30)
[2020-07-18] MEDS ORDERED: VANCOMYCIN PER PHARMACY MC SCH (01:30)
[2020-07-18] MEDS ORDERED: ONDANSETRON 2MG/ML, 2ML IVPush PRN (01:30)
--- NOTE | 2020-07-18 01:35 | NUR ---
REPORT TO MARGRET FOSTER. PER SEPSIS FLOWSHEET PT. DOESN'T MEET ANY CRITERIA IN SECTION B OR C AT THIS TIME. FLOOR READY FOR PT. TRANSPORT.
[2020-07-18 02:26] VITALS: BP 146/88
[2020-07-18] MEDS ORDERED: PHARMACOKINETIC MONITORING MC PRN ×2 (02:30→03:30)
[2020-07-18 02:51] LABS: SODIUM,URINE RANDOM 33 mmol/L
[2020-07-18 02:56] LABS: MICROSCOPIC NOT IND
[2020-07-18 03:17] LABS: OSMOLALITY,URINE 183 mOsm/kg (500-850)
[2020-07-18] MEDS: DIPHENHYDRAMINE 50 MG/ML, 1ML IVPush SCH ×4 (03:20→23:47)
[2020-07-18] MEDS: SODIUM CHLORIDE 0.9% 1,000 ML IV SCH ×3 (03:21→20:04)
[2020-07-18] MEDS ORDERED: VANCOMYCIN 2,000 MG in SODIUM CHLORIDE 0.9% 500 ML IV ONE (03:30)
[2020-07-18] MEDS: morphine SULFATE 10 MG/ML, 1ML IVPush PRN ×4 (03:42→23:58)
[2020-07-18 07:27] VITALS: BP 123/74
[2020-07-18 07:44] LABS: ANION GAP 6 mmol/L (5-15); CHLORIDE 98 mmol/L (98-107); CREATININE 0.76 mg/dL (0.7-1.3)
[2020-07-18] MEDS: ENOXAPARIN 40 MG/0.4 ML SQ SCH (08:33)
[2020-07-18] MEDS ORDERED: FAMOTIDINE 20 MG/2 ML IVPush SCH (09:00)
[2020-07-18] MEDS: FLUTICASONE NASAL SPRAY 16GM NAS SCH (10:01)
[2020-07-18] MEDS: IPRATROPIUM NASAL 0.03%, 30ML NAS SCH ×3 (10:01→20:04)
[2020-07-18] MEDS: AMIODARONE 200 MG TABLET PO SCH (10:09)
[2020-07-18] MEDS: METOPROLOL SUCCINATE 50 MG TAB.ER.24H PO SCH (10:09)
[2020-07-18 14:04] VITALS: BP 93/59
[2020-07-18 18:17] VITALS: BP 97/66
[2020-07-18] MEDS: DEXAMETHASONE 4 MG/ML, 1ML IVPush SCH (20:03)
[2020-07-18] MEDS ORDERED: VANCOMYCIN 1,500 MG in SODIUM CHLORIDE 0.9% 250 ML IV SCH (21:00)
[2020-07-18] MEDS: FAMOTIDINE 20 MG TABLET PO SCH (21:29)
[2020-07-19 00:47] VITALS: BP 117/80
[2020-07-19] MEDS: morphine SULFATE 10 MG/ML, 1ML IVPush PRN ×3 (03:02→17:45)
[2020-07-19 04:46] LABS: BASOPHILS % (AUTO) 0 % (0-1); EOSINOPHILS % (AUTO) 0 % (1-7); LYMPHOCYTES # (AUTO) 0.19 x10^3/uL (1-3.4); LYMPHOCYTES % (AUTO) 2 % (22-44); MD NO; MEAN CORPUSCULAR HEMOGLOBIN 34.4 pg (27.5-34.5); MEAN CORPUSCULAR HGB CONC 31.6 g/dL (33.2-36.2); MEAN CORPUSCULAR VOLUME 108.9 fL (81-97); MEAN PLATELET VOLUME 8.8 fL (7.4-10.4); MONOCYTES # (AUTO) 0.46 x10^3/uL (0.2-0.8); MONOCYTES % (AUTO) 5 % (2-9); NEUTROPHILS # (AUTO) 8.64 x10^3/uL (1.8-6.8); NEUTROPHILS % (AUTO) 93 % (42-75); PLATELET COUNT 210 x10^3/uL (130-400); RED BLOOD COUNT 3.99 x10^6/uL (4.38-5.82); RED CELL DISTRIBUTION WIDTH 17.8 % (9.4-14.8)
[2020-07-19 04:48] LABS: ANION GAP 4 mmol/L (5-15); CALCIUM 8.8 mg/dL (8.5-10.1); CHLORIDE 102 mmol/L (98-107); CREATININE 0.78 mg/dL (0.7-1.3)
[2020-07-19] MEDS: SODIUM CHLORIDE 0.9% 1,000 ML IV SCH ×3 (04:59→21:18)
[2020-07-19] MEDS: DIPHENHYDRAMINE 50 MG/ML, 1ML IVPush SCH ×2 (05:16→12:22)
[2020-07-19 06:34] VITALS: BP 112/69
[2020-07-19] MEDS: FLUTICASONE NASAL SPRAY 16GM NAS SCH (07:52)
[2020-07-19] MEDS: FAMOTIDINE 20 MG TABLET PO SCH ×2 (08:05→21:14)
[2020-07-19] MEDS: METOPROLOL SUCCINATE 50 MG TAB.ER.24H PO SCH (08:06)
[2020-07-19] MEDS: AMIODARONE 200 MG TABLET PO SCH (08:06)
[2020-07-19] MEDS: DEXAMETHASONE 4 MG/ML, 1ML IVPush SCH ×2 (08:07→21:12)
[2020-07-19] MEDS: ENOXAPARIN 40 MG/0.4 ML SQ SCH (08:08)
[2020-07-19] MEDS: IPRATROPIUM NASAL 0.03%, 30ML NAS SCH ×3 (08:10→21:00)
--- NOTE | 2020-07-19 10:30 | NUR ---
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
[2020-07-19 13:18] VITALS: BP 115/63
[2020-07-19] MEDS: ACETAMINOPHEN 325 MG TABLET PO SCH ×3 (15:00→21:14)
[2020-07-19] MEDS: DIPHENHYDRAMINE 25 MG CAPSULE PO SCH ×2 (15:03→21:14)
[2020-07-19 18:51] VITALS: BP 115/71
[2020-07-19] MEDS: AMOXICILLIN/CLAV 875-125MG TABLET PO SCH (21:13)
[2020-07-20 00:23] VITALS: BP 138/84
[2020-07-20] MEDS ORDERED: SODIUM CHLORIDE 0.9% 1,000 ML IV SCH (01:23)
[2020-07-20] MEDS: ACETAMINOPHEN 325 MG TABLET PO SCH ×4 (04:13→20:49)
[2020-07-20] MEDS: SODIUM CHLORIDE 0.9% 1,000 ML IV SCH ×2 (04:14→10:08)
[2020-07-20] MEDS: FLUTICASONE NASAL SPRAY 16GM NAS SCH (07:08)
[2020-07-20] MEDS: DIPHENHYDRAMINE 25 MG CAPSULE PO SCH ×3 (08:16→20:49)
[2020-07-20] MEDS: AMIODARONE 200 MG TABLET PO SCH (08:17)
[2020-07-20] MEDS: AMOXICILLIN/CLAV 875-125MG TABLET PO SCH ×2 (08:17→20:49)
[2020-07-20] MEDS: FAMOTIDINE 20 MG TABLET PO SCH ×2 (08:17→20:49)
[2020-07-20] MEDS: METOPROLOL SUCCINATE 50 MG TAB.ER.24H PO SCH (08:17)
[2020-07-20 08:18] VITALS: BP 115/70
[2020-07-20] MEDS: DEXAMETHASONE 4 MG/ML, 1ML IVPush SCH (08:18)
[2020-07-20] MEDS: ENOXAPARIN 40 MG/0.4 ML SQ SCH (08:18)
[2020-07-20] MEDS: IPRATROPIUM NASAL 0.03%, 30ML NAS SCH ×3 (08:19→20:50)
[2020-07-20 12:40] VITALS: BP 126/74
[2020-07-20 18:52] VITALS: BP 133/81
[2020-07-20] MEDS: morphine SULFATE 10 MG/ML, 1ML IVPush PRN (22:19)
[2020-07-21 00:27] VITALS: BP 148/78
[2020-07-21] MEDS: morphine SULFATE 10 MG/ML, 1ML IVPush PRN ×2 (02:05→12:39)
[2020-07-21] MEDS: ACETAMINOPHEN 325 MG TABLET PO SCH ×4 (02:46→21:11)
[2020-07-21 07:33] VITALS: BP 149/86
[2020-07-21] MEDS: FAMOTIDINE 20 MG TABLET PO SCH ×2 (07:46→21:10)
[2020-07-21] MEDS: IPRATROPIUM NASAL 0.03%, 30ML NAS SCH ×3 (07:46→21:11)
[2020-07-21] MEDS: AMOXICILLIN/CLAV 875-125MG TABLET PO SCH ×2 (07:46→21:10)
[2020-07-21] MEDS: FLUTICASONE NASAL SPRAY 16GM NAS SCH (07:46)
[2020-07-21] MEDS: ENOXAPARIN 40 MG/0.4 ML SQ SCH (07:46)
[2020-07-21] MEDS: DIPHENHYDRAMINE 25 MG CAPSULE PO SCH ×3 (07:46→21:10)
[2020-07-21] MEDS: METOPROLOL SUCCINATE 50 MG TAB.ER.24H PO SCH (07:46)
[2020-07-21] MEDS: AMIODARONE 200 MG TABLET PO SCH (07:46)
[2020-07-21] MEDS ORDERED: DEXAMETHASONE 4 MG TABLET PO SCH ×2 (09:00→14:00)
[2020-07-21 12:39] VITALS: BP 122/73
[2020-07-21 19:29] VITALS: BP 109/70
[2020-07-21] MEDS: DEXAMETHASONE 4 MG TABLET PO SCH (19:34)
[2020-07-21] MEDS: OXYcodone IR 5MG TABLET PO PRN (19:34)
[2020-07-22 01:41] VITALS: BP 139/90
[2020-07-22] MEDS: OXYcodone IR 5MG TABLET PO PRN (01:45)
[2020-07-22] MEDS: ACETAMINOPHEN 325 MG TABLET PO SCH ×2 (03:40→08:57)
[2020-07-22 07:21] VITALS: BP 135/79
[2020-07-22] MEDS ORDERED: DEXA4TAB66 PO (08:02)
[2020-07-22] MEDS ORDERED: AMOX1TAB12 PO (08:02)
[2020-07-22] MEDS ORDERED: OXYC5TAB3 PO (08:02)
[2020-07-22] MEDS: FLUTICASONE NASAL SPRAY 16GM NAS SCH (08:57)
[2020-07-22] MEDS: DIPHENHYDRAMINE 25 MG CAPSULE PO SCH (08:57)
[2020-07-22] MEDS: FAMOTIDINE 20 MG TABLET PO SCH (08:59)
[2020-07-22] MEDS: METOPROLOL SUCCINATE 50 MG TAB.ER.24H PO SCH (08:59)
[2020-07-22] MEDS: IPRATROPIUM NASAL 0.03%, 30ML NAS SCH (08:59)
[2020-07-22] MEDS: DEXAMETHASONE 4 MG TABLET PO SCH (08:59)
[2020-07-22] MEDS: AMIODARONE 200 MG TABLET PO SCH (08:59)
[2020-07-22] MEDS: AMOXICILLIN/CLAV 875-125MG TABLET PO SCH (08:59)
[2020-07-22] MEDS: ENOXAPARIN 40 MG/0.4 ML SQ SCH (09:00)
== END 2020-07-22 09:50 | disposition home health service (06) | DRG 155 ==
LOC: ED 23:41 → EDIP 07-18 01:47 → 4NW 07-18 02:14 → DCLOUNGE 07-22 09:40
PROVIDERS: ADMIT Student in an Organized Health Care Education/Training Program; ATTEND Family Medicine
DX: K11.21 Acute sialoadenitis (principal); L03.211 Cellulitis of face; J98.11 Atelectasis; E87.1 Hypo-osmolality and hyponatremia; T78.3XXA Angioneurotic edema, initial encounter; E86.1 Hypovolemia; F17.200 Nicotine dependence, unspecified, uncomplicated; I10 Essential (primary) hypertension; I48.91 Unspecified atrial fibrillation; I73.9 Peripheral vascular disease, unspecified; J38.4 Edema of larynx; J44.9 Chronic obstructive pulmonary disease, unspecified; Y84.2 Radiological procedure and radiotherapy as the cause of abnormal reaction of the patient, or of later complication, without mention of misadventure at the time of the procedure; Z96.642 Presence of left artificial hip joint; F12.90 Cannabis use, unspecified, uncomplicated; R59.0 Localized enlarged lymph nodes; E86.0 Dehydration; Z85.819 Personal history of malignant neoplasm of unspecified site of lip, oral cavity, and pharynx; Z92.21 Personal history of antineoplastic chemotherapy; Z92.3 Personal history of irradiation; Z80.9 Family history of malignant neoplasm, unspecified; Z83.3 Family history of diabetes mellitus
CPT/HCPCS: 36415; 70487; 70491; 80048; 81003; 82040; 83735; 83880; 83930; 83935; 84300; 85025; 87040; 96374; 96375; 99285; G0378; J1100; J1650; J2405; J3370; Q9967; J1200; J2270; J3490; J7030; J7040; J7050; Q0163

== ENCOUNTER 2020-08-06 10:39 | Emergency (ER) | payer MEDICARE ==
[~2020-08-06] VITALS: Ht 190.5 cm; Wt 76.0 kg
[~2020-08-06 10:39] MED LIST changes: +AMOX1TAB12 PO; +CLOP75TA PO; +DEXA4TAB66 PO; +HYDR-3240 PO; +OXYC5TAB3 PO
--- NOTE | 2020-08-06 12:02 | NUR ---
PT BIB [facility] FOR C/O PROGRESSIVE WEAKNESS AND EDEMA FOR THE PAST 2 WEEKS. PT HAD HIS FEMORAL ARTERY CLEARED SURGICALLY 2 WEEKS AGO, STATES SYMPTOMS STARTED THE NEXT DAY. BLE EDEMA WEEPING, EDEMA REPORTED UP TO PENIS, AND ALSO SOME FACIAL SWELLING WHICH PT STATES HE IS CURRENTLY ON ANTIBIOTICS FOR. PT IS NOT ON ANY DIURETICS, HAS BEEN GIVEN DEXA AMONG OTHER MEDS TO TREAT HIS CURRENT SYMPTOMS. Hx COPD, [place] 2L O2. BS 84. BILATERAL LE EDEMA 3+, DP WITH WEAK PALPABLE PULSE BILATERALLY
--- NOTE | 2020-08-06 12:08 | NUR ---
LAB AT BEDSIDE ULTRASOUND AT BEDSIDE
[2020-08-06 12:15] VITALS: BP 134/72
[2020-08-06 12:21] LABS: ALBUMIN 3.1 g/dL (3.4-5.0); ANION GAP 8 mmol/L (5-15); CALCIUM 8.7 mg/dL (8.5-10.1); CHLORIDE 100 mmol/L (98-107)
[2020-08-06 12:26] LABS: MEAN CORPUSCULAR HEMOGLOBIN 34.8 pg (27.5-34.5); MEAN CORPUSCULAR HGB CONC 32.9 g/dL (33.2-36.2); MEAN PLATELET VOLUME 9.3 fL (7.4-10.4); PLATELET COUNT 161 x10^3/uL (130-400); RED BLOOD COUNT 4.19 x10^6/uL (4.38-5.82); RED CELL DISTRIBUTION WIDTH 17.5 % (9.4-14.8)
[2020-08-06 12:51] LABS: BASOPHILS % (AUTO) 0 % (0-1); EOSINOPHILS % (AUTO) 0 % (1-7); LYMPHOCYTES % (AUTO) 2 % (22-44); MD SCAN; MONOCYTES # (AUTO) 0.38 x10^3/uL (0.2-0.8); MONOCYTES % (AUTO) 3 % (2-9); NEUTROPHILS # (AUTO) 12.05 x10^3/uL (1.8-6.8); NEUTROPHILS % (AUTO) 95 % (42-75)
--- NOTE | 2020-08-06 13:08 | NUR ---
All testing resulted-placed up for recheck/provider made aware
--- NOTE | 2020-08-06 13:33 | NUR ---
break RN note: EDMD awaiting vascular consult and dispo.
--- NOTE | 2020-08-06 13:56 | NUR ---
pt resting on gurney, a&o ,resps even and unlabored. at bedside. MD awaiting vascular consult and dispo.
[2020-08-13] MEDS ORDERED: PANT40TA6 PO (10:11)
== END 2020-08-06 14:43 | disposition home or self-care (01) ==
LOC: ED 12:55
DX: I82.412 Acute embolism and thrombosis of left femoral vein (principal); I45.10 Unspecified right bundle-branch block; I10 Essential (primary) hypertension; J44.9 Chronic obstructive pulmonary disease, unspecified; I48.91 Unspecified atrial fibrillation; I48.92 Unspecified atrial flutter; Z96.642 Presence of left artificial hip joint; Z85.818 Personal history of malignant neoplasm of other sites of lip, oral cavity, and pharynx
CPT/HCPCS: 36415; 80048; 82040; 83880; 85025; 93005; 99285

== ENCOUNTER 2020-08-23 14:42 | Outpatient (CLI) | payer MEDICARE ==
[~2020-08-23 14:42] MED LIST changes: -CEPH-376 PO; -FURO-93 PO; -POTA10TA31 PO
[2020-08-23] MEDS ORDERED: POTA10TA31 PO (15:27)
[2020-08-23] MEDS ORDERED: FURO-93 PO (15:27)
[2020-08-23] MEDS ORDERED: CEPH-376 PO (15:27)
[2020-08-23] MEDS ORDERED: HYDR-3240 PO (15:27)
[2020-08-31] MEDS ORDERED: HYDR-3240 PO (22:08)
[2020-08-31] MEDS ORDERED: POTA10TA5 PO (22:13)
[2020-08-31] MEDS ORDERED: PANT40TA6 PO (22:15)
[2020-08-31] MEDS ORDERED: IPRA3AMP30 INH (22:16)
== END 2020-08-23 23:59 | disposition home or self-care (01) ==
LOC: RAD 14:42
PROVIDERS: ATTEND Internal Medicine
DX: Z02.9 Encounter for administrative examinations, unspecified (principal)

== ENCOUNTER → 2020-08-23 | Outpatient (CLI) | payer MEDICARE ==
[~2020-08-23] MED LIST changes: +CEPH-376 PO; +FURO-93 PO; +PANT40TA6 PO; +POTA10TA31 PO
== END | disposition home or self-care (01) ==
LOC: STAR 14:22
PROVIDERS: ATTEND Internal Medicine Geriatric Medicine
DX: Z01.812 Encounter for preprocedural laboratory examination (principal); Z20.828 Contact with and (suspected) exposure to other viral communicable diseases; C16.9 Malignant neoplasm of stomach, unspecified; I45.10 Unspecified right bundle-branch block
CPT/HCPCS: 36415; 87635; 93005

== ENCOUNTER → 2020-08-27 | Outpatient (CLI) | payer MEDICARE ==
[~2020-08-27] MED LIST changes: +CEPH-376 PO; +FURO-93 PO; +IPRA3AMP30 INH; +POTA10TA31 PO; +POTA10TA5 PO
== END | disposition home or self-care (01) ==
LOC: WOUND 13:32
PROVIDERS: ATTEND Internal Medicine
DX: T81.31XA Disruption of external operation (surgical) wound, not elsewhere classified, initial encounter (principal); I87.312 Chronic venous hypertension (idiopathic) with ulcer of left lower extremity; I70.242 Atherosclerosis of native arteries of left leg with ulceration of calf; L97.222 Non-pressure chronic ulcer of left calf with fat layer exposed; I70.245 Atherosclerosis of native arteries of left leg with ulceration of other part of foot; L97.522 Non-pressure chronic ulcer of other part of left foot with fat layer exposed; I70.248 Atherosclerosis of native arteries of left leg with ulceration of other part of lower leg; L97.822 Non-pressure chronic ulcer of other part of left lower leg with fat layer exposed; I70.243 Atherosclerosis of native arteries of left leg with ulceration of ankle; L97.322 Non-pressure chronic ulcer of left ankle with fat layer exposed; I48.91 Unspecified atrial fibrillation; I48.92 Unspecified atrial flutter; E03.9 Hypothyroidism, unspecified; F17.210 Nicotine dependence, cigarettes, uncomplicated; F12.90 Cannabis use, unspecified, uncomplicated; J44.1 Chronic obstructive pulmonary disease with (acute) exacerbation; L84 Corns and callosities; E43 Unspecified severe protein-calorie malnutrition; Z68.20 Body mass index [BMI] 20.0-20.9, adult; Z85.818 Personal history of malignant neoplasm of other sites of lip, oral cavity, and pharynx; Z96.642 Presence of left artificial hip joint; Z85.828 Personal history of other malignant neoplasm of skin; Z79.891 Long term (current) use of opiate analgesic; Z79.899 Other long term (current) drug therapy; Y92.238 Other place in hospital as the place of occurrence of the external cause; Y83.8 Other surgical procedures as the cause of abnormal reaction of the patient, or of later complication, without mention of misadventure at the time of the procedure
CPT/HCPCS: 97597; 97598

== ENCOUNTER 2020-08-28 10:41 | Day surgery (SDC) | payer MEDICARE ==
[~2020-08-28] VITALS: Ht 182.9 cm; Wt 72.0 kg
[~2020-08-28 10:41] MED LIST changes: -IPRA3AMP30 INH; -POTA10TA5 PO
[2020-08-28] MEDS ORDERED: MIDAZOLAM 1 MG/ML, 2ML ONE (10:53)
[2020-08-28] MEDS ORDERED: FENTANYL PF 100 MCG/2ML ONE (10:54)
[2020-08-28 11:22] VITALS: BP 114/74
[2020-08-28] MEDS ORDERED: CHLORHEXIDINE 15 ML UDC ONE (11:27)
[2020-08-28] MEDS ORDERED: LACTATED RINGERS 1,000 ML IV SCH (11:30)
[2020-08-28] MEDS ORDERED: PROPOFOL 10 MG/ML, 20ML ONE ×2 (11:30→12:13)
[2020-08-28] MEDS ORDERED: CHLORHEXIDINE 15 ML UDC MM ONE (11:30)
[2020-08-28] MEDS ORDERED: OXYcodone 5 MG/5 ML ORAL.SOL UDC PO PRN (12:30)
[2020-08-28] MEDS ORDERED: FENTANYL PF 100 MCG/2ML IV PRN (12:30)
[2020-08-28] MEDS ORDERED: morphine SULFATE 10 MG/ML, 1ML IVPush PRN (12:30)
[2020-08-28] MEDS ORDERED: LABETALOL 5MG/ML, 20ML IV PRN (12:30)
[2020-08-28] MEDS ORDERED: hydrALAzine 20 MG/ML, 1ML IV PRN (12:30)
[2020-08-28] MEDS ORDERED: PROMETHAZINE 25 MG/ML, 1ML IVPush PRN (12:30)
[2020-08-28] MEDS ORDERED: ACETAMINOPHEN 325 MG TABLET PO PRN (12:30)
[2020-08-28] MEDS ORDERED: ONDANSETRON 2MG/ML, 2ML IVPush PRN (12:30)
[2020-08-31] MEDS ORDERED: HYDR-3240 PO (22:08)
[2020-08-31] MEDS ORDERED: POTA10TA5 PO (22:13)
[2020-08-31] MEDS ORDERED: PANT40TA6 PO (22:15)
[2020-08-31] MEDS ORDERED: IPRA3AMP30 INH (22:16)
== END 2020-08-28 14:10 | disposition home or self-care (01) ==
LOC: OUT 10:41
PROVIDERS: ATTEND Internal Medicine Geriatric Medicine
DX: K31.89 Other diseases of stomach and duodenum (principal); C16.0 Malignant neoplasm of cardia; I10 Essential (primary) hypertension; I48.91 Unspecified atrial fibrillation; J44.9 Chronic obstructive pulmonary disease, unspecified; I73.9 Peripheral vascular disease, unspecified; E03.9 Hypothyroidism, unspecified; F17.210 Nicotine dependence, cigarettes, uncomplicated; Z79.890 Hormone replacement therapy; Z79.891 Long term (current) use of opiate analgesic; Z79.899 Other long term (current) drug therapy; Z85.89 Personal history of malignant neoplasm of other organs and systems; Z86.010 Personal history of colon polyps; Z92.21 Personal history of antineoplastic chemotherapy; Z96.642 Presence of left artificial hip joint; Z99.81 Dependence on supplemental oxygen; Z98.890 Other specified postprocedural states; Z83.3 Family history of diabetes mellitus; Z82.49 Family history of ischemic heart disease and other diseases of the circulatory system; Z80.1 Family history of malignant neoplasm of trachea, bronchus and lung
CPT/HCPCS: 43239; 43259; 88305; 88341; 88342; J2250; J2704; J3010; J7120

== ENCOUNTER 2020-08-28 14:22 | Emergency (ER) | payer MEDICARE ==
[~2020-08-28] VITALS: Ht 167.6 cm; Wt 73.0 kg
[2020-08-28] MEDS ORDERED: HYDROcodone/APAP 10/325 MG TABLET PO ONE (14:30)
[2020-08-28] MEDS ORDERED: HYDROcodone/APAP 10/325 MG TABLET ONE (14:41)
[2020-08-28] MEDS ORDERED: HYDROmorphone 1 MG/ML, 1ML INJ ONE (15:22)
[2020-08-28] MEDS ORDERED: HYDROmorphone 1 MG/ML, 1ML INJ IM ONE (15:30)
[2020-08-28 16:17] VITALS: BP 121/48
== END 2020-08-28 16:33 | disposition home or self-care (01) ==
LOC: ED 14:35
DX: I82.502 Chronic embolism and thrombosis of unspecified deep veins of left lower extremity (principal); R60.0 Localized edema; J44.9 Chronic obstructive pulmonary disease, unspecified; Z87.11 Personal history of peptic ulcer disease
CPT/HCPCS: 96372; 99283; J1170